=== PATIENT | female | born 1975 ===

== ENCOUNTER 2023-02-11 12:13 | Emergency (ER) | payer SELFPAY ==
[2023-02-11] MEDS ORDERED: Boostrix 0.5 ML (Tdap) VIAL (>/=7 yrs of age) ONE (12:56)
[2023-02-11] MEDS ORDERED: Oxymetazoline HCl 0.05% (30 ML BOT) ONE (12:56)
== END 2023-02-11 14:42 | disposition home or self-care (01) ==
LOC: ERS 12:13
DX: J34.0 Abscess, furuncle and carbuncle of nose (principal); E11.9 Type 2 diabetes mellitus without complications; Z23 Encounter for immunization
CPT/HCPCS: 90471; 90715